=== PATIENT | male | born 1980 | race African-American/Black ===

== ENCOUNTER 2018-05-18 20:19 | Emergency (ER) | payer OTHER ==
[2018-05-18 20:33] VITALS: BP 113/73
--- NOTE | 2018-05-18 22:03 | ED ANIMAL BITE/WOUND CHECK ---
History of Present Illness General Chief Complaint: Suture Removal/Wound Recheck Stated Complaint: TO HAVE STITCHES REMOVED FROM RT LEG Source: patient Exam Limitations: no limitations Vital Signs & Intake/Output Vital Signs & Intake/Output Vital Signs Date Time Temp Pulse Resp B/P B/P Pulse O2 O2 Flow FiO2 Mean Ox Delivery Rate 05/18 2033 98.0 68 18 113/73 96 Room Air Allergies Coded Allergies: No Known Allergies (07/21/17) Reconcile Medications No Known Home Medications Triage Note: PT TO TRIAGE TO HAVE STITCHES REMOVED FROM R SIMPSON. PLACED LAST SUNDAY. SITE INTACT. Triage Nurses Notes Reviewed? yes HPI: Patient presents to the emergency department for wound check and suture removal. Patient states that he suffered a laceration to the anterior right leg that occurred 11 days ago. He denies any issues with the wound including abnormal pain or drainage. Past History Travel History Traveled to [place] past 21 day No Medical History Any Pertinent Medical History? 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 No Review of Systems Review of Systems Constitutional: Reports: no symptoms. EENTM: Reports: no symptoms. Respiratory: Reports: no symptoms. Cardiovascular: Reports: no symptoms. GI: Reports: no symptoms. Genitourinary: Reports: no symptoms. Musculoskeletal: Reports: no symptoms. Skin: Reports: see HPI. Neurological/Psychological: Reports: no symptoms. Hematologic/Endocrine: Reports: no symptoms. Immunologic/Allergic: Reports: no symptoms. All Other Systems: Reviewed and Negative Physical Exam Physical Exam General Appearance: SEE BELOW Comments: Gen.: Well-nourished, well-developed, no acute respiratory distress. Head: Normocephalic, atraumatic. Eyes: Normal inspection bilaterally Ears: Normal inspection bilaterally Nose: Normal inspection Throat/mouth : Moist mucosa Neck: Supple, full range of motion, no goiter Heart: Regular rate and rhythm Lungs: Quiet respirations Back: Normal range of motion Extremities: Right anterior leg: Sutured wound with soft tissue avulsion Neurologic: Cranial nerves grossly intact, speech is clear Skin: warm and dry Psychiatric: Calm, cooperative, no apparent delusions or hallucinations Progress Differential Diagnosis: abscess, cellulitis Plan of Care: Wound care Comments: Procedure note: Patient's wound had heavy crusting which was removed with small amount of hydrogen peroxide. Sutures removed without difficulty. Departure Departure Disposition: HOME OR SELF CARE Condition: Stable Clinical Impression Primary Impression: Visit for suture removal Referrals: Patient Has No Primary Care Dr (PCP/Family) Additional Instructions: Bacitracin gauze dressing to your wound daily. Follow-up with your primary care physician in one week for wound check. Return if any concerns or sudden worsening. Departure Forms: Customer Survey General Discharge Information Prescriptions: Current Visit Scripts No Known Home Medications
== END 2018-05-18 22:09 ==
LOC: ERH 20:19
DX: Z48.02 Encounter for removal of sutures (principal)